=== PATIENT | male | born 1965 | race Caucasian/White ===

== ENCOUNTER 2024-10-22 22:17 | Observation (INO) | payer OTHER ==
[~2024-10-22] VITALS: Ht 188 cm; Wt 113.4 kg
[2024-10-22 22:17] VITALS: TEMP 98.5
[~2024-10-22 22:17] MED LIST: AMBIEN5 MG PO; CEFDINIR300 MG PO; COLACE100 MG PO; Calcium Carbonate PO; FERROUS SULFAT325 MG PO; FLOMAX0.4 MG PO; Guaifenesin/Dextromethorphan PO; JANUVIA100 MG PO; LEVAQUIN500 MG PO; LIPITOR20 MG PO; LISINOPRIL2.5 MG PO; Loratadine PO; METFORMIN HCL500 MG PO; METOPROLOL SUCC25 MG PO; MUCINEX DM ER1 EACH PO; MYRBETRIQ50 MG PO; NICOTINE PATCH1 EAC4 TD; NORCO 10-325 T1 EACH PO; SENOKOT8.6 MG PO; TYLENOL WITH C1 EACH PO; URIBEL CAPSULE1 EACH PO
[2024-10-22] MEDS ORDERED: SODIUM CHLORIDE FLUSH 10 ML SYR IV PRN (22:30)
[2024-10-22] MEDS: KETOROLAC TROMETHAMINE 30 MG/ML VIAL IV STA (23:04)
[2024-10-22 23:05] LABS: BASOPHILS % 0.3 % (0.0-1.0); EOSINOPHILS % 1.0 % (0.0-6.0); LYMPHOCYTES % 14.4 % (18.0-39.1); MONOCYTES % 9.8 % (4.4-11.3); NEUTROPHILS % 74.0 % (38.7-80.0); RED CELL DISTRIBUTION WIDTH 13.2 % (11.7-14.4)
[2024-10-22] MEDS: ASPIRIN 81 MG CHEW TAB PO ONE (23:05)
[2024-10-22 23:23] LABS: EST GLOMERULAR FILTRATION RATE 61.0 ML/MIN (>=60)
[2024-10-23] VITALS (8 sets, daily range): BP systolic 98–143; BP diastolic 62–86; PULSE 18–66; RESP 16–55; TEMP 97.5–97.8; O2SAT 97–100
[2024-10-23] MEDS ORDERED: SODIUM CHLORIDE FLUSH 10 ML SYR INJ PRN (00:30)
[2024-10-23] MEDS ORDERED: ONDANSETRON HCL INJ 2MG/ML 2ML 2 MG/ML VIAL IV PRN (00:30)
[2024-10-23] MEDS ORDERED: BRILINTA90 MG PO (03:22)
[2024-10-23] MEDS ORDERED: GLIMEPIRIDE2 MG PO (03:24)
[2024-10-23] MEDS ORDERED: INSPRA25 MG PO (03:27)
[2024-10-23] MEDS ORDERED: ENTRESTO 24 MG1 EACH PO (03:27)
[2024-10-23] MEDS ORDERED: ASPIRIN81 MG PO (03:27)
[2024-10-23] MEDS ORDERED: SYNJARDY XR 121 EACH PO (03:33)
[2024-10-23] MEDS ORDERED: AMBIEN10 MG PO (03:33)
[2024-10-23] MEDS ORDERED: METOPROLOL SUCC50 MG PO (03:33)
[2024-10-23] MEDS ORDERED: ZOLPIDEM TARTRATE 5 MG TAB PO PRN (03:45)
[2024-10-23] MEDS: TICAGRELOR 90 MG TABLET PO SCH ×2 (08:26→18:02)
[2024-10-23] MEDS: ASPIRIN 81 MG CHEW TAB PO SCH (08:26)
[2024-10-23] MEDS: METOPROLOL SUCCINATE 25 MG TAB XL PO SCH (08:26)
[2024-10-23] MEDS: ATORVASTATIN 20 MG TAB PO SCH (20:11)
[2024-10-24] VITALS (14 sets, daily range): BP systolic 104–134; BP diastolic 58–83; PULSE 48–84; RESP 12–24; TEMP 97.2–97.8; O2SAT 98–100
[2024-10-24] MEDS: SODIUM CHLORIDE 0.9% 1000ML 1,000 ML IV SCH (05:45)
[2024-10-24 06:48] LABS: BASOPHILS % 0.5 % (0.0-1.0); EOSINOPHILS % 2.6 % (0.0-6.0); LYMPHOCYTES % 28.5 % (18.0-39.1); MONOCYTES % 9.6 % (4.4-11.3); NEUTROPHILS % 58.5 % (38.7-80.0); RED CELL DISTRIBUTION WIDTH 13.2 % (11.7-14.4)
[2024-10-24 07:12] LABS: INR 0.89
[2024-10-24 07:19] LABS: EST GLOMERULAR FILTRATION RATE 102.0 ML/MIN (>=60)
[2024-10-24] MEDS ORDERED: METOPROLOL SUCCINATE 50 MG TAB XL PO SCH (09:00)
[2024-10-24] MEDS ORDERED: HEPARIN SOD (PORCINE) 1000 UNIT/ML 30ML ONE (09:23)
[2024-10-24] MEDS ORDERED: VERAPAMIL HCL 2.5 MG/ML 2 ML VIAL ONE (09:23)
[2024-10-24] MEDS ORDERED: NITROGLYCERIN/D5W 200 MCG/ML 250 ML ONE (09:24)
[2024-10-24] MEDS ORDERED: SODIUM CHLORIDE 0.9% 1000ML 1,000 ML ONE (09:24)
[2024-10-24] MEDS ORDERED: HEPARIN SOD/SOD CHLORIDE 2,000 ML ONE (09:24)
[2024-10-24] MEDS ORDERED: IOPAMIDOL 370 MG/ML 100 ML INFUS..BTL INJ ONE (09:24)
[2024-10-24] MEDS ORDERED: LIDOCAINE HCL 2% LOCAL 20 ML VIAL ONE (09:24)
[2024-10-24] MEDS ORDERED: MIDAZOLAM HCL 2 MG/2 ML VIAL ONE ×2 (10:13→10:21)
[2024-10-24] MEDS ORDERED: FENTANYL CITRATE/PF 100MCG/2 ML INJ ONE (10:14)
[2024-10-24] MEDS ORDERED: SODIUM CHLORIDE 0.9% 1000ML 1,000 ML IV SCH (11:30)
== END 2024-10-24 14:50 | disposition home or self-care (01) ==
LOC: ER 22:23 → ERHOLD 10-23 00:27 → MED/SURG3 10-23 01:35
PROVIDERS: ADMIT Internal Medicine; ATTEND Internal Medicine
DX: I25.110 Atherosclerotic heart disease of native coronary artery with unstable angina pectoris (principal); I11.0 Hypertensive heart disease with heart failure; I50.22 Chronic systolic (congestive) heart failure; I25.5 Ischemic cardiomyopathy; E78.00 Pure hypercholesterolemia, unspecified; Z95.5 Presence of coronary angioplasty implant and graft; I25.2 Old myocardial infarction; E11.9 Type 2 diabetes mellitus without complications; Z79.84 Long term (current) use of oral hypoglycemic drugs; Z79.82 Long term (current) use of aspirin; E66.01 Morbid (severe) obesity due to excess calories; Z68.32 Body mass index [BMI] 32.0-32.9, adult; Z72.0 Tobacco use; Z79.899 Other long term (current) drug therapy
CPT/HCPCS: 36415 ×3; 71045; 76937; 80053 ×2; 82550 ×2; 82948; 83880; 84484 ×3; 85025 ×2; 85379; 85610; 93005 ×2; 93306; 93458; 94760; 99284; C1769; C1887; G0378 ×2; J1644; J1885; J2003; J2250; J3010; J7030; Q9967; 99152; 99153